=== PATIENT | female | born 1990 | race Caucasian/White ===

== ENCOUNTER 2019-06-18 09:33 | Emergency (ER) | payer OTHER ==
--- NOTE | 2019-06-18 09:39 | ED ---
Back Pain - HPI Summary HPI Summary: 28-year-old female with no significant past medical history presents to the emergency department today complaining of lumbar back pain which began yesterday evening when bending over. Patient versus lower lumbar pain which is worse on the left with radiculopathy down her left leg which she describes as "electric". Patient endorses some out of 10 pain. She has taken 600 mg of ibuprofen for her pain prior to arrival. Patient denies recent trauma. She is able to ambulate and full range of motion. Patient denies fever, headache, neck pain, rash, incontinence, shortness breath, chest pain, abdominal pain, recent trauma. Family History and surgical history noncontributory. - History of Current Complaint Chief Complaint: EDBackInjuryPain Stated Complaint: BACK PAIN PER PT Time Seen by Provider: 06/18/19 09:39 Hx Obtained From: Patient Onset/Duration: Sudden Onset Onset/Duration: Started Days Ago Timing: Constant Back Pain Location: Is Discrete @ - Low back Severity Initially: Moderate Severity Currently: Moderate Pain Intensity: 6 Pain Scale Used: 0-10 Numeric Character: Aching Aggravating Symptom(s): Movement, Lifting, Bending, Walking Alleviating Symptom(s): Rest, OTC Meds Associated Signs And Symptoms: Positive: Tingling. Negative: Swelling, Redness , Bruising, Fever, Weakness, Numbness, Bladder Incontinence, Bowel Incontinence - Allergies/Home Medications Allergies/Adverse Reactions: Allergies Allergy/AdvReac Type Severity Reaction Status Date / Time No Known Allergies Allergy Verified 06/18/19 09:37 PMH/Surg Hx/FS Hx/Imm Hx Infectious Disease History: No Infectious Disease History: Denies: Traveled Outside the [place] in Last 30 Days Review of Systems Constitutional: Negative Eyes: Negative ENT: Negative Cardiovascular: Negative Respiratory: Negative Gastrointestinal: Negative Genitourinary: Negative Positive: Arthralgia, Myalgia. Negative: Decreased ROM Skin: Negative Neurological: Negative Psychological: Normal All Other Systems Reviewed And Are Negative: Yes Physical Exam - Summary Physical Exam Summary: There is no ecchymosis, edema, erythema appreciated with physical exam of the back. Negative straight leg raise on the right positive straight leg raise on the left indicative of lumbar muscle strain. Patient has no midline tenderness to palpation however she has exquisitely tender on the left paraspinal muscles. There is no evident muscle fasciculation. Triage Information Reviewed: Yes Vital Signs On Initial Exam: Initial Vitals Temp Pulse Resp BP Pulse Ox 98.0 F 71 16 122/87 99 06/18/19 09:35 06/18/19 09:35 06/18/19 09:35 06/18/19 09:35 06/18/19 09:35 Vital Signs Reviewed: Yes Appearance: Positive: Well-Appearing, No Pain Distress, Well-Nourished Skin: Positive: Warm, Skin Color Reflects Adequate Perfusion Head/Face: Positive: Normal Head/Face Inspection Eyes: Positive: EOMI, ANDREE ENT: Positive: Hearing grossly normal Neck: Positive: Nontender Respiratory/Lung Sounds: Positive: Clear to Auscultation, Breath Sounds Present Cardiovascular: Positive: RRR, S1, S2 Bowel Sounds: Positive: Present Musculoskeletal: Positive: Strength/ROM Intact Neurological: Positive: Sensory/Motor Intact, Alert, Oriented to Person Place, Time, Abnormal Gait - Antalgic gait, Speech Normal Psychiatric: Positive: Normal AVPU Assessment: Alert Procedures - Sedation Patient Received Moderate/Deep Sedation with Procedure: No Diagnostics - Vital Signs Vital Signs Temp Pulse Resp BP Pulse Ox 06/18/19 09:35 98.0 F 71 16 122/87 99 - Laboratory Lab Statement: Any lab studies that have been ordered have been reviewed, and results considered in the medical decision making process. Back Pain Course/Dx - Course Course Of Treatment: Patient was evaluated in the emergency department today for back pain. Vitals are stable she is afebrile. Physical exam showed no evidence of cauda equina or epidural abscess. Physical exam is consistent with lumbar muscle strain of the left paraspinal muscles. Patient has full range of motion and no midline tenderness. She is given 10 mg of Flexeril in the emergency department given instructions on outpatient follow-up. She was given a prescription for Flexeril and told to take ibuprofen. She is follow-up with her primary care provider at the [facility] for further outpatient management. Patient agrees with this plan. - Diagnoses Differential Diagnosis/HQI/PQRI: Positive: Cauda Equina Syndrome, Compressive Cord Syndrome, Epidural Abscess, Fracture, Herniated Disc, Strain, Sprain Provider Diagnoses: Back pain Discharge ED - Sign-Out/Discharge Documenting (check all that apply): Patient Departure - Discharge Plan Condition: Stable Disposition: HOME Prescriptions: Cyclobenzaprine TAB* [Flexeril 10 MG TAB*] 10 mg PO TID PRN #12 tab PRN Reason: Pain - Moderate Patient Education Materials: Low Back Strain (ED) Referrals: No Primary Care Phys,NOPCP [Primary Care Provider] - [facility] [Outside] - 5 Days Additional Instructions: You were seen in the emergency department today for back pain. Please follow up with your primary care physician in 5 days for further evaluation and management of your injury. Please take for your symptoms: * Ibuprofen 600mg three times daily with meals for pain. (Anti Inflammatory) * Flexeril 10mg every 6 hours as needed for pain. (Muscle relaxant) Most people with an episode of low back pain do not have a serious medical problem, and can try simple treatments such as: Staying active The best thing you can do is to stay as active as possible. People with low back pain recover faster if they stay active. If your pain is severe, you might need to rest for a day or 2. But it's important to get back to walking and moving as soon as possible. While you should avoid heavy lifting and sports while your back hurts, try to keep doing your normal daily activities. Heat Some people find that it helps to use a heating pad or heated wrap. Be careful to avoid high heat settings to prevent skin haji. Spinal manipulation This is when a chiropractor, physical therapist, or other professional moves or "adjusts" the joints of your back. If you want to try this, talk to your doctor or nurse first. Acupuncture This is when someone who knows traditional Spanish medicine inserts tiny needles into your body to block pain signals. Massage While back pain usually goes away within a few weeks, some people do continue to have pain for longer. In this case, additional treatments might include: Self care This involves being aware of your pain. While you should rest when you need to, it's important to stay active as much as you can. Things like applying heat and doing gentle stretches can help you feel better, too. Physical therapy A physical therapist is an exercise expert who can teach you stretches and movements to help strengthen your muscles. The goal is to relieve pain but also help you get back to your normal activities. Exercises you can try include walking, swimming, or using an exercise bike. Some people also find that Shane [employer] or yoga can help with their back pain. Finding activities you enjoy can help you stay active. Reducing stress Some people find that it helps to try something called "mindfulness-based stress reduction." This involves going to a group program to practice relaxation and meditation. If your back pain is making you feel anxious or depressed, talk to your doctor or nurse. There are other treatments that can help with these problems. Only a small number of people end up needing surgery to treat back pain. - Billing Disposition and Condition Condition: STABLE Disposition: Home
[2019-06-18] MEDS: Cyclobenzaprine TAB* 10 MG PO ONE (09:55)
[2019-06-18 10:03] VITALS: BP 109/84
== END 2019-06-18 10:02 | disposition home or self-care (01) ==
LOC: ED 09:33
DX: M54.9 Dorsalgia, unspecified (principal)
CPT/HCPCS: 99282; A9270-GY

== ENCOUNTER 2019-07-16 06:48 | Emergency (ER) | payer OTHER ==
--- NOTE | 2019-07-16 07:11 | ED ---
Complex/Multi-Sys Presentation - HPI Summary HPI Summary: 28 year old F arriving via private car complains of chest pain, panic attack, and suicidal thoughts that started on her way to work this morning. Per nurse, patient's friend drove patient to work this morning and reported that patient made comments about wanting to hurt herself. Patient states she is worried about being fired from work if she stays here. Patient denies fever, chills, erythema of eyes, sore throat, shortness of breath, cough, abdominal pain, nausea/vomiting, dysuria, hematuria, myalgia, edema, rash, or dizziness. Symptoms rated 4/10 in severity. Symptoms aggravated by nothing. Symptoms alleviated by nothing. Medications reviewed. Allergies noted. - History Of Current Complaint Onset/Duration: Lasting Minutes, Still Present Timing: Constant Severity Currently: Moderate Aggravating Factor(s): Nothing Alleviating Factor(s): Nothing - Allergies/Home Medications Allergies/Adverse Reactions: Allergies Allergy/AdvReac Type Severity Reaction Status Date / Time No Known Allergies Allergy Verified 06/18/19 09:37 PMH/Surg Hx/FS Hx/Imm Hx Endocrine/Hematology History: Denies: Hx Diabetes Sensory History: Reports: Hx Contacts or Glasses Opthamlomology History: Reports: Hx Contacts or Glasses Psychiatric History: Reports: Hx Panic Disorder - Surgical History Surgical History: None - Family History Known Family History: Positive: Other - NEG: cancer - Social History Alcohol Use: Occasionally Substance Use Type: Reports: None Hx Tobacco Use: No Smoking Status (MU): Never Smoked Tobacco Review of Systems Negative: Fever, Chills Negative: Erythema Negative: Sore Throat Positive: Chest Pain Negative: Shortness Of Breath, Cough Negative: Abdominal Pain, Vomiting, Nausea Negative: dysuria, hematuria Negative: Myalgia, Edema Negative: Rash Neurological: Negative - Dizziness Positive: Other - panic attack, suicidal thoughts All Other Systems Reviewed And Are Negative: Yes Physical Exam - Summary Physical Exam Summary: Constitutional: Well-developed, Well-nourished, Alert. (-) Distressed Skin: Warm, Dry HENT: Normocephalic; Atraumatic Eyes: Conjunctiva normal Neck: Musculoskeletal ROM normal neck. (-) JVD, (-) Stridor, (-) Tracheal deviation Cardio: Rhythm regular, rate normal, Heart sounds normal; Intact distal pulses; The pedal pulses are 2+ and symmetric. Radial pulses are 2+ and symmetric. (-) Murmur Pulmonary/Chest wall: Effort normal. (-) Respiratory distress, (-) Wheezes, (-) Rales Abd: Soft, (-) tenderness, (-) Distension, (-) Guarding, (-) Rebound Musculoskeletal: (-) Edema Lymph: (-) Cervical adenopathy Neuro: Alert, Oriented x3 Psych: Patient is hyperventilating. Speech is pressured. She is anxious appearing and avoiding eye contact. Triage Information Reviewed: Yes Vital Signs Reviewed: Yes Procedures - Sedation Patient Received Moderate/Deep Sedation with Procedure: No Diagnostics - Laboratory Result Diagrams: 07/16/19 07:45 07/16/19 07:45 Lab Statement: Any lab studies that have been ordered have been reviewed, and results considered in the medical decision making process. Complex Multi-Symp Course/Dx Course Of Treatment: 28 year old F complains of chest pain, panic attack, and suicidal thoughts that started on her way to work this morning. Per nurse, patient's friend drove patient to work this morning and reported that patient made comments about wanting to hurt herself. Patient states she is worried about being fired from work if she stays here. Upon exam, the patient is hyperventilating. Speech is pressured. She is anxious appearing and avoiding eye contact. Bloodwork results with no significant abnormalities except for WBC 12.4, absolute neuts 9.1, BUN/creatinine 21.3, glucose 103, total bilirubin 1.30. Toxicology results with no significant abnormalities. Psychiatric cook helper fruit reviewed case with Dr. Garcia. Dr. Garcia saw the patient and recommends discharge. The patient will be discharged home. - Diagnoses Provider Diagnoses: Panic disorder - Physician Notifications Time Discussed With Above Provider: 14:30 Instructed by Provider To: Other - Psychiatric cook helper fruit reviewed case with Dr. Garcia. Dr. Garcia saw the patient and recommends discharge. Discharge ED - Sign-Out/Discharge Documenting (check all that apply): Patient Departure - Discharge Plan Condition: Stable Disposition: HOME Referrals: No Primary Care Phys,NOPCP [Primary Care Provider] - - Attestation Statements Document Initiated by Scribe: Yes Documenting Scribe: Amanda Hendrix Provider For Whom Scribe is Documenting (Include Credential): Mao Villegas MD Scribe Attestation: Amanda Tenorio, scribed for Mao Villegas MD on 07/16/19 at 1641. Status of Scribe Document: Ready
[2019-07-16 07:52] LABS: ABS Eosinophils 0.1 10^3/ul (0-0.6); ABS Lymphocytes 2.4 10^3/ul (1.0-4.8); ABS Monocytes 0.8 10^3/ul (0-0.8); ABS Neutrophils 9.1 10^3/ul (1.5-7.7); Eosinophil % 1.1 %; Hematocrit 40 % (35-47); Hemoglobin 14.1 g/dL (12.0-16.0); Lymphocyte % 19.2 %; Mean Corpuscular HGB Conc 36 g/dL (31-36); Mean Corpuscular Hemoglobin 31 pg (27-31); Mean Corpuscular Volume 86 fL (80-97); Mean Platelet Volume 7.4 fL (7.4-10.4); Platelet Count 276 10^3/uL (150-450); Red Blood Count 4.58 10^6 /uL (3.70-4.87); Red Cell Distribution Width 12 % (10-15); White Blood Count 12.4 10^3/uL (3.5-10.8)
[2019-07-16 08:13] LABS: ALT 16 U/L (7-52); AST 16 U/L (13-39); Albumin 4.5 g/dL (3.2-5.2); Albumin/Globulin Ratio 1.6 (1-3); Alkaline Phosphatase 66 U/L (34-104); Anion Gap 9 mmol/L (2-11); BUN/Creatinine Ratio 21.3 (8-20); Blood Urea Nitrogen 16 mg/dL (6-24); CO2 Carbon Dioxide 23 mmol/L (22-32); Calcium 9.2 mg/dL (8.6-10.3); Chloride 106 mmol/L (101-111); EGFR African American 111.3 (>60); Globulin 2.8 g/dL (2-4); Glucose 103 mg/dL (70-100); Potassium 3.7 mmol/L (3.5-5.0); Sodium 138 mmol/L (135-145); Total Protein 7.3 g/dL (6.4-8.9)
[2019-07-16 08:40] LABS: Acetaminophen < 15 mcg/mL; Alcohol < 10 mg/dL (<10); Salicylate < 2.50 mg/dL (<30)
[2019-07-16 08:55] LABS: TSH (Thyroid Stimulating Horm) 1.98 mcIU/mL (0.34-5.60)
[2019-07-16 08:56] LABS: HCG Pregnancy < 0.60 mIU/mL
[2019-07-16 15:39] VITALS: BP 130/82
== END 2019-07-16 14:41 | disposition home or self-care (01) ==
LOC: ED 06:48
DX: F41.0 Panic disorder [episodic paroxysmal anxiety] (principal)
CPT/HCPCS: 36415; 80053; 80320; 80329; 84443; 84702; 85025; 99285; G0480